=== PATIENT | male | born 1975 | race Caucasian/White ===

== ENCOUNTER 2018-09-07 19:29 | Inpatient (IN) | payer SELFPAY ==
[~2018-09-07] VITALS: Ht 188 cm; Wt 111.1 kg
[2018-09-07] MEDS ORDERED: IV NORMAL SALINE 1000ML BAG 1,000 ML IV ONE (20:00)
[2018-09-07] MEDS ORDERED: ACETAMINOPHEN 325 MG TABLET. PO PRN (20:00)
[2018-09-07] MEDS ORDERED: ONDANSETRON PF 4 MG/2 ML VIAL. IV PRN (20:00)
--- NOTE | 2018-09-07 20:02 | PHYS DOC ---
Past Medical History Past Medical History: Hypertension Additional Past Surgical Histo: Jaw surgery Smoking: Cigarettes Alcohol Use: None Drug Use: Benzodiazepine, Marijuana, Methamphetamine Adult General Chief Complaint Chief Complaint: HAND PROBLEM HPI HPI 43-year-old male presents with swelling and redness to right hand 3 days. Patient is right-handed. Patient reports he injected methamphetamines into the dorsal aspect of his upper wrist on Friday. Patient see was using a clean insulin needle. Reports he knows he missed the vein as he did not get his normal high. Patient reports the next day noted some significant swelling and redness which worsened over the last few days. Patient reports subjective fever and chills. Patient reports he found some left over Keflex antibiotics which he started yesterday. Patient reports today some slight improvement. Patient did have a ring on his right ring finger which was causing more pain and discomfort. Patient reports he has received a tetanus booster within the last 5 years. Review of Systems Review of Systems Constitutional: Reports subjective fever and chills Eyes: Denies redness or eye pain HENT: Denies nasal congestion or sore throat Respiratory: Denies cough or shortness of breath Cardiovascular: Denies chest pain or palpitations GI: Denies abdominal pain, nausea, or vomiting : Denies dysuria or hematuria Musculoskeletal: Denies back pain; reports right hand pain and swelling Integument: Denies laceration; reports right hand erythema and swelling Neurologic: Denies headache, focal weakness or sensory changes Complete systems were reviewed and found to be within normal limits, except as documented in this note. Current Medications Current Medications Current Medications Medications (Trade) Dose Ordered Sig/Elva Start Time Stop Time Status Last Admin Dose Admin Acetaminophen (Tylenol) 650 mg PRN Q4HRS PRN 09/07/18 20:00 09/08/18 19:59 09/07/18 20:17 650 MG Clindamycin Phosphate 50 ml @ 100 mls/hr 1X ONCE 09/07/18 20:30 09/07/18 20:59 DC 09/07/18 20:12 100 MLS/HR Ondansetron HCl (Zofran) 4 mg PRN Q8HRS PRN 09/07/18 20:00 09/08/18 19:59 Sodium Chloride 1,000 ml @ 1,000 mls/hr 1X ONCE 09/07/18 20:00 09/07/18 20:59 DC 09/07/18 20:00 1,000 MLS/HR Allergies Allergies Allergies Coded Allergies Type Severity Reaction Last Updated Verified No Known Drug Allergies 09/07/18 No Physical Exam Physical Exam Constitutional: Well developed, well nourished, no acute distress, non-toxic appearance HENT: Normocephalic, atraumatic, oropharynx moist Eyes: Conjunctiva normal, no discharge Neck: Normal range of motion, no tenderness, supple Cardiovascular: Heart rate normal, regular rhythm Lungs & Thorax: Bilateral breath sounds clear to auscultation, no wheezing Skin: Warm, dry, dorsal right hand with swelling and erythema consistent for cellulitis, puncture wound noted to dorsal right wrist Back: No tenderness, no CVA tenderness Extremities: Right hand swelling and erythema to dorsum, ROM limited due to swelling, mild discomfort with flexion of finger, CR < 2 sec, Right radial pulse +2 Neurologic: Alert and oriented X 3, no focal deficits noted Psychologic: Affect normal, judgement normal, mood normal Current Patient Data Vital Signs Vital Signs Date Time Temp Pulse Resp B/P (MAP) Pulse Ox O2 Delivery O2 Flow Rate FiO2 09/07/18 19:49 97.4 104 19 156/92 (113) 99 Room Air 97.4 Lab Values Laboratory Tests Test 09/07/18 19:42 White Blood Count 12.9 x10^3/uL (4.0-11.0) H Red Blood Count 4.64 x10^6/uL (4.30-5.70) Hemoglobin 13.4 g/dL (13.0-17.5) Hematocrit 40.5 % (39.0-53.0) Mean Corpuscular Volume 87 fL (79-100) Mean Corpuscular Hemoglobin 29 pg (25-35) Mean Corpuscular Hemoglobin Concent 33 g/dL (31-37) Red Cell Distribution Width 13.5 % (11.5-14.5) Platelet Count 186 x10^3/uL (140-400) Neutrophils (%) (Auto) 79 % (31-73) H Lymphocytes (%) (Auto) 11 % (24-48) L Monocytes (%) (Auto) 8 % (0-9) Eosinophils (%) (Auto) 2 % (0-3) Basophils (%) (Auto) 0 % (0-3) Neutrophils # (Auto) 10.1 x10^3uL (1.8-7.7) H Lymphocytes # (Auto) 1.5 x10^3/uL (1.0-4.8) Monocytes # (Auto) 1.0 x10^3/uL (0.0-1.1) Eosinophils # (Auto) 0.2 x10^3/uL (0.0-0.7) Basophils # (Auto) 0.0 x10^3/uL (0.0-0.2) Prothrombin Time 12.9 SEC (11.7-14.0) Prothrombin Time INR 1.0 (0.8-1.1) PTT 32 SEC (24-38) Sodium Level 140 mmol/L (136-145) Potassium Level 4.5 mmol/L (3.5-5.1) Chloride Level 105 mmol/L (98-107) Carbon Dioxide Level 30 mmol/L (21-32) Anion Gap 5 (6-14) L Blood Urea Nitrogen 13 mg/dL (8-26) Creatinine 1.0 mg/dL (0.7-1.3) Estimated GFR (Cockcroft-Gault) 81.9 BUN/Creatinine Ratio 13 (6-20) Glucose Level 114 mg/dL (70-99) H Lactic Acid Level 1.1 mmol/L (0.4-2.0) Calcium Level 9.1 mg/dL (8.5-10.1) Magnesium Level 2.1 mg/dL (1.8-2.4) Total Bilirubin 0.4 mg/dL (0.2-1.0) Aspartate Amino Transferase (AST) 29 U/L (15-37) Alanine Aminotransferase (ALT) 31 U/L (16-63) Alkaline Phosphatase 94 U/L (46-116) C-Reactive Protein, Quantitative 81.9 mg/L (0-3.3) H Total Protein 6.5 g/dL (6.4-8.2) Albumin 3.1 g/dL (3.4-5.0) L Albumin/Globulin Ratio 0.9 (1.0-1.7) L Laboratory Tests 09/07/18 19:42 Laboratory Tests 09/07/18 19:42 EKG EKG [] Radiology/Procedures Radiology/Procedures XR right hand (3 view): (preliminary interpretation by ED physician): NO acute fracture/dislocation, soft tissue swelling to dorsal aspect, no retained foreign body. Course & Med Decision Making Course & Med Decision Making Pertinent Labs and Imaging studies reviewed. (See chart for details) Patient presents with history of present illness and physical exam consistent for cellulitis status post injection of methamphetamines into his right hand. Empiric antibiotics initiated. Labs obtained and posted to chart. WBC slightly elevated. CRP elevated. Lactic acid within normal limits. Blood cultures pen ding. SIRS criteria met with tachycardia and elevated WBC. Given source of infection to right hand, sepsis criteria met. Severe sepsis and septic shock not demonstrated. X-ray of right hand without signs of retained foreign body. Patient requiring admission for further evaluation and treatment. Discussed with Dr. Diaz (hospitalist) who is in agreement with admission. Discussed findings and plan with patient, who acknowledges understanding and agreement. Dragon Disclaimer Dragon Disclaimer This electronic medical record was generated, in whole or in part, using a voice recognition dictation system. Departure Departure Impression: Primary Impression: Sepsis Additional Impressions: Cellulitis of right hand IV drug abuse Disposition: ADMITTED INPATIENT Admitting Physician: Other (Riffel) Condition: STABLE Referrals: UNKNOWN PCP NAME (PCP) Problem Qualifiers Primary Impression: Sepsis Sepsis type: sepsis due to unspecified organism Qualified Codes: A41.9 - Sepsis, unspecified organism CARLOS HERNÁNDEZ DO September 07, 2018 20:02
[2018-09-07 20:09] LABS: BASO % 0 % (0-3); EOS # 0.2 x10^3/uL (0.0-0.7); EOS % 2 % (0-3); HEMATOCRIT 40.5 % (39.0-53.0); HEMOGLOBIN 13.4 g/dL (13.0-17.5); LYMPH # 1.5 x10^3/uL (1.0-4.8); LYMPH % 11 % (24-48); MEAN CORPUSCULAR HEMOGLOBIN 29 pg (25-35); MEAN CORPUSCULAR HGB CONC 33 g/dL (31-37); MEAN CORPUSCULAR VOLUME 87 fL (79-100); MONO % 8 % (0-9); NEUT # 10.1 x10^3uL (1.8-7.7); NEUT % 79 % (31-73); PLATELET COUNT 186 x10^3/uL (140-400); RED BLOOD COUNT 4.64 x10^6/uL (4.30-5.70); RED CELL DISTRIBUTION WIDTH 13.5 % (11.5-14.5); WHITE BLOOD COUNT 12.9 x10^3/uL (4.0-11.0)
[2018-09-07 20:19] LABS: PROTHROMBIN TIME PATIENT 12.9 SEC (11.7-14.0)
[2018-09-07 20:28] LABS: CALCIUM 9.1 mg/dL (8.5-10.1); GFR 81.9; POTASSIUM 4.5 mmol/L (3.5-5.1)
[2018-09-07] MEDS ORDERED: CLINDAMYCIN 600MG PREMIX 50 ML IV ONE (20:30)
[2018-09-07 20:34] LABS: ALBUMIN 3.1 g/dL (3.4-5.0); ALBUMIN/GLOBULIN RATIO 0.9 (1.0-1.7); C-REACTIVE PROTEIN 81.9 mg/L (0-3.3); MAGNESIUM 2.1 mg/dL (1.8-2.4); TOTAL BILIRUBIN 0.4 mg/dL (0.2-1.0); TOTAL PROTEIN 6.5 g/dL (6.4-8.2)
--- NOTE | 2018-09-07 21:15 | RAD ---
Three-view right hand radiographs 09/07/2018 CLINICAL HISTORY: Right hand swelling. IV drug use. Concern for foreign body. PA, lateral and oblique digital radiographs of the right hand were obtained. Soft tissue swelling seen involving the dorsal soft tissues of the right hand. No fracture or dislocation is seen. No radiopaque foreign body is noted. IMPRESSION: No radiopaque foreign body is seen. Electronically signed by: Alirio Velez MD (09/07/2018 9:12 PM) [facility]
[2018-09-07] MEDS ORDERED: CLON0.5T PO (22:43)
[2018-09-07 22:47] VITALS: BP 143/92
[2018-09-07] MEDS: clonazePAM 0.5 MG TABLET PO SCH (22:57)
[2018-09-07] MEDS: NICOTINE POLACRILEX 2MG GUM PACKAGE of 12. BC PRN (22:57)
[2018-09-08 03:00] VITALS: BP 138/90
[2018-09-08] MEDS: VANCOMYCIN PER PHARMACY MC PRN (06:31)
--- NOTE | 2018-09-08 06:32 | NUR ---
Pharmacy Vancomycin Dosing Note S:Consulted to monitor and dose vancomycin started 09/08/18. O:JUDSON PEREZ is a 43 year old M with Cellulitis Sepsis . Height: 6 feet, 2 inches Weight: 102.374570 kg [place] Body Weight: 82.20 Adjusted Body Weight: 90.12 Dosing Weight: Actual Other Antibiotics: LABS: Last BUN: 13 Last Creatinine: 1 Creatinine Clearance: 122 mL/min Last WBC: 12.9 Last Procalcitonin: Tmax (past 24 hours): Microbiology: I/O: Drug Levels: Last level: on at Last dose given 09/08/18 at 0700 Vancomycin Dosing: Loading Dose: 2000 mg x1 Dosing Weight: Actual Target Trough: 15-20 A: Based on: WT AND CRCL P: 1. Begin Vancomycin 1500 mg IV q8h 2. Follow up Trough level on 09/09/18 at 0630 3. Pharmacy will continue to monitor, follow and adjust therapy as needed. MATTHEW MCKAY RPH, 09/08/18 0632 Signed: 09/08/18 at 0633 by MATTHEW MCKAY RPH PHA
[2018-09-08 07:00] VITALS: BP 130/73
[2018-09-08] MEDS ORDERED: VANCOMYCIN 2 GM in IV NORMAL SALINE 500ML BAG 500 ML IV ONE (07:00)
--- NOTE | 2018-09-08 08:11 | PDOC1 ---
History and Physical Date of Admission Date of Admission DATE: 09/08/18 TIME: 08:07 Source Source: Chart review, Patient History of Present Illness History of Present Illness 43-year-old male presents with swelling and redness to right hand 3 days. Patient is right-handed. Patient reports he injected methamphetamines into the dorsal aspect of his upper wrist on Friday. Patient see was using a clean insulin needle. Reports he knows he missed the vein as he did not get his normal high. Patient reports the next day noted some significant swelling and redness which worsened over the last few days. Patient reports subjective fever and chills. Patient reports he found some left over Keflex antibiotics which he started yesterday. Patient reports today some slight improvement. Patient did have a ring on his right ring finger which was causing more pain and discomfort. Patient reports he has received a tetanus booster within the last 5 years. Past Surgical History Past Surgical History: No pertinent history Social History Smoke: <1 pack per day ALCOHOL: rare Drugs: Crystal meth Current Problem List Problem List Problems Medical Problems: (1) Cellulitis of right hand Status: Acute (2) IV drug abuse Status: Acute (3) Sepsis Status: Acute Current Medications Current Medications Current Medications Clindamycin Phosphate 50 ml @ 100 mls/hr 1X ONCE IV Last administered on 09/07/18at 20:12; Start 09/07/18 at 20:30; Stop 09/07/18 at 20:59; Status DC Sodium Chloride 1,000 ml @ 1,000 mls/hr 1X ONCE IV Last administered on 09/07/18at 20:00; Start 09/07/18 at 20:00; Stop 09/07/18 at 20:59; Status DC Ondansetron HCl (Zofran) 4 mg PRN Q8HRS PRN IV NAUSEA/VOMITING; Start 09/07/18 at 20:00; Stop 09/09/18 at 19:58 Acetaminophen (Tylenol) 650 mg PRN Q4HRS PRN PO FEVER Last administered on 09/07/18at 20:17; Start 09/07/18 at 20:00; Stop 09/09/18 at 19:58 Nicotine Polacrilex (Nicorette Gum) 1 each PRN Q1HR PRN BC SMOKING CESSATION Last administered on 09/07/18at 22:57; Start 09/07/18 at 23:00 Clonazepam (KlonoPIN) 0.5 mg TID PO Last administered on 09/07/18at 22:57; Sta rt 09/07/18 at 23:00 Vancomycin HCl 2 gm/Sodium Chloride 500 ml @ 250 mls/hr 1X ONCE IV Last administered on 09/08/18at 06:44; Start 09/08/18 at 07:00; Stop 09/08/18 at 08:59 Vancomycin HCl (Vanco Per Pharmacy) 1 each PRN DAILY PRN MC SEE COMMENTS Last a dministered on 09/08/18at 06:31; Start 09/08/18 at 06:30 Vancomycin HCl 1.5 gm/Sodium Chloride 500 ml @ 250 mls/hr Q8H IV ; Start 09/08/18 at 15:00 Vancomycin HCl (Vancomycin Trough Level) 1 each 1X ONCE MC ; Start 09/09/18 at 06:30; Stop 09/09/18 at 06:31 Active Scripts Active Reported Klonopin (Clonazepam) 0.5 Mg Tablet 0.5 Mg PO TID Allergies Allergies: Coded Allergies: No Known Drug Allergies (Unverified , 09/07/18) ROS General: YES: Fatigue; No: Chills, Night Sweats, Malaise, Appetite, Other PSYCHOLOGICAL ROS: No: Anxiety, Behavioral Disorder, Concentration difficultie, Decreased libido, Depression, Disorientation, Hallucinations, Hostility, Irritablity, Memory difficulties, Mood Swings, Obsessive thoughts, Physical abuse, Sexual abuse, Sleep disturbances, Suicidal ideation, Other Eyes: No Blurry vision, No Decreased vision, No Double vision, No Dry eyes, No Excessive tearing, No Eye Pain, No Itchy Eyes, No Loss of vision, No Photophobia, No Scotomata, No Uses contacts, No Uses glasses, No Other Physical Exam General: Alert, Oriented X3, Cooperative, No acute distress HEENT: Atraumatic, PERRLA Lungs: Clear to auscultation, Normal air movement Heart: S1S2, RRR, no murmurs Abdomen: Normal bowel sounds, Soft Rectal Exam: not examined Extremities: No cyanosis, No edema, Normal pulses Skin: No rashes, No breakdown, No significant lesion Neuro: Normal speech, Sensation intact Psych/Mental Status: Mental status NL, Mood NL Vitals Vitals Vital Signs Date Time Temp Pulse Resp B/P (MAP) Pulse Ox O2 Delivery O2 Flow Rate FiO2 09/08/18 07:00 98.2 87 18 130/73 (92) 97 Room Air 98.2 Labs Labs Laboratory Tests Test 09/07/18 19:42 White Blood Count 12.9 x10^3/uL (4.0-11.0) Red Blood Count 4.64 x10^6/uL (4.30-5.70) Hemoglobin 13.4 g/dL (13.0-17.5) Hematocrit 40.5 % (39.0-53.0) Mean Corpuscular Volume 87 fL (79-100) Mean Corpuscular Hemoglobin 29 pg (25-35) Mean Corpuscular Hemoglobin Concent 33 g/dL (31-37) Red Cell Distribution Width 13.5 % (11.5-14.5) Platelet Count 186 x10^3/uL (140-400) Neutrophils (%) (Auto) 79 % (31-73) Lymphocytes (%) (Auto) 11 % (24-48) Monocytes (%) (Auto) 8 % (0-9) Eosinophils (%) (Auto) 2 % (0-3) Basophils (%) (Auto) 0 % (0-3) Neutrophils # (Auto) 10.1 x10^3uL (1.8-7.7) Lymphocytes # (Auto) 1.5 x10^3/uL (1.0-4.8) Monocytes # (Auto) 1.0 x10^3/uL (0.0-1.1) Eosinophils # (Auto) 0.2 x10^3/uL (0.0-0.7) Basophils # (Auto) 0.0 x10^3/uL (0.0-0.2) Erythrocyte Sedimentation Rate 33 (0-15) Prothrombin Time 12.9 SEC (11.7-14.0) Prothromb Time International Ratio 1.0 (0.8-1.1) Activated Partial Thromboplast Time 32 SEC (24-38) Sodium Level 140 mmol/L (136-145) Potassium Level 4.5 mmol/L (3.5-5.1) Chloride Level 105 mmol/L (98-107) Carbon Dioxide Level 30 mmol/L (21-32) Anion Gap 5 (6-14) Blood Urea Nitrogen 13 mg/dL (8-26) Creatinine 1.0 mg/dL (0.7-1.3) Estimated GFR (Cockcroft-Gault) 81.9 BUN/Creatinine Ratio 13 (6-20) Glucose Level 114 mg/dL (70-99) Lactic Acid Level 1.1 mmol/L (0.4-2.0) Calcium Level 9.1 mg/dL (8.5-10.1) Magnesium Level 2.1 mg/dL (1.8-2.4) Total Bilirubin 0.4 mg/dL (0.2-1.0) Aspartate Amino Transf (AST/SGOT) 29 U/L (15-37) Alanine Aminotransferase (ALT/SGPT) 31 U/L (16-63) Alkaline Phosphatase 94 U/L (46-116) C-Reactive Protein, Quantitative 81.9 mg/L (0-3.3) Total Protein 6.5 g/dL (6.4-8.2) Albumin 3.1 g/dL (3.4-5.0) Albumin/Globulin Ratio 0.9 (1.0-1.7) Laboratory Tests Test 09/07/18 19:42 White Blood Count 12.9 x10^3/uL (4.0-11.0) Red Blood Count 4.64 x10^6/uL (4.30-5.70) Hemoglobin 13.4 g/dL (13.0-17.5) Hematocrit 40.5 % (39.0-53.0) Mean Corpuscular Volume 87 fL (79-100) Mean Corpuscular Hemoglobin 29 pg (25-35) Mean Corpuscular Hemoglobin Concent 33 g/dL (31-37) Red Cell Distribution Width 13.5 % (11.5-14.5) Platelet Count 186 x10^3/uL (140-400) Neutrophils (%) (Auto) 79 % (31-73) Lymphocytes (%) (Auto) 11 % (24-48) Monocytes (%) (Auto) 8 % (0-9) Eosinophils (%) (Auto) 2 % (0-3) Basophils (%) (Auto) 0 % (0-3) Neutrophils # (Auto) 10.1 x10^3uL (1.8-7.7) Lymphocytes # (Auto) 1.5 x10^3/uL (1.0-4.8) Monocytes # (Auto) 1.0 x10^3/uL (0.0-1.1) Eosinophils # (Auto) 0.2 x10^3/uL (0.0-0.7) Basophils # (Auto) 0.0 x10^3/uL (0.0-0.2) Erythrocyte Sedimentation Rate 33 (0-15) Prothrombin Time 12.9 SEC (11.7-14.0) Prothromb Time International Ratio 1.0 (0.8-1.1) Activated Partial Thromboplast Time 32 SEC (24-38) Sodium Level 140 mmol/L (136-145) Potassium Level 4.5 mmol/L (3.5-5.1) Chloride Level 105 mmol/L (98-107) Carbon Dioxide Level 30 mmol/L (21-32) Anion Gap 5 (6-14) Blood Urea Nitrogen 13 mg/dL (8-26) Creatinine 1.0 mg/dL (0.7-1.3) Estimated GFR (Cockcroft-Gault) 81.9 BUN/Creatinine Ratio 13 (6-20) Glucose Level 114 mg/dL (70-99) Lactic Acid Level 1.1 mmol/L (0.4-2.0) Calcium Level 9.1 mg/dL (8.5-10.1) Magnesium Level 2.1 mg/dL (1.8-2.4) Total Bilirubin 0.4 mg/dL (0.2-1.0) Aspartate Amino Transf (AST/SGOT) 29 U/L (15-37) Alanine Aminotransferase (ALT/SGPT) 31 U/L (16-63) Alkaline Phosphatase 94 U/L (46-116) C-Reactive Protein, Quantitative 81.9 mg/L (0-3.3) Total Protein 6.5 g/dL (6.4-8.2) Albumin 3.1 g/dL (3.4-5.0) Albumin/Globulin Ratio 0.9 (1.0-1.7) VTE Prophylaxis Ordered VTE Prophylaxis Devices: No VTE Pharmacological Prophylaxi: Yes Assessment/Plan Assessment/Plan cellulitis w. edema skin infection from IV drug abuse meth use tobacco use disorder ANGELITA HAMLIN MD September 08, 2018 08:11
[2018-09-08] MEDS: clonazePAM 0.5 MG TABLET PO SCH ×3 (09:21→21:00)
[2018-09-08 11:00] VITALS: BP 138/82
--- NOTE | 2018-09-08 11:31 | CARD ---
MR#: [id number] Date of Study: 09/08/2018 Ordering Physician: ANGELITA HAMLIN, Referring Physician: RACHEL MEDRANO, Tech: Zeenat Guerrero APPROVED REPORT EXAM: Two-dimensional and M-mode echocardiogram with Doppler and color Doppler. Other Information Quality : GoodHR: 96bpm INDICATION IV Drug User RISK FACTORS Smoking 2D DIMENSIONS RVDd3.2 (2.9-3.5cm)Left Atrium(2D)4.0 (1.6-4.0cm) IVSd1.2 (0.7-1.1cm)Aortic Root(2D)3.5 (2.0-3.7cm) LVDd5.7 (3.9-5.9cm)LVOT Diameter2.4 (1.8-2.4cm) PWd1.1 (0.7-1.1cm)LVDs4.3 (2.5-4.0cm) FS (%) 23.9 %SV75.3 ml LVEF(%)47.0 (>50%) Aortic Valve AoV Peak Corey.148.7cm/sAoV VTI26.2cm AO Peak GR.8.8mmHgLVOT Peak Corey.93.9cm/s LVOT VTI 18.66cmAO Mean GR.6mmHg GLEN (VMAX)2.04we3NOM (VTI)3.32cm2 Mitral Valve MV E Dhmkkzkp907.7cm/sMV DECEL KAPN140mx MV A Lwocabcd50.3cm/sMV DOC56ih E/A Ratio1.7MVA (PHT)4.32cm2 Pulmonary Valve PV Peak Qsbgbbln024.6cm/sPV Peak Grad.5mmHg Tricuspid Valve TR P. Ofgotvsb132jd/sRAP ONSOEEXU59mrLw TR Peak Gr.44unXaDSWY70qnBm Pulmonary Vein S1 Qetfhaxy94.0cm/sD2 Vdcsraqp77.6cm/s PVa atnttaya101ckyp LEFT VENTRICLE The left ventricle is normal size. There is mild concentric left ventricular hypertrophy. The left ve ntricular systolic function is normal. The Ejection Fraction is 55-60%. There is normal LV segmental wall motion. The left ventricular diastolic function and filling is normal for age. RIGHT VENTRICLE The right ventricle is normal size. There is normal right ventricular wall thickness. The right ventr icular systolic function is normal. ATRIA The left atrium size is normal. The right atrium is borderline dilated. The interatrial septum is int act with no evidence for an atrial septal defect or patent foramen ovale as noted on 2-D or Doppler i maging. AORTIC VALVE The aortic valve is normal in structure and function. Doppler and Color Flow revealed no significant aortic regurgitation. There is no significant aortic valvular stenosis. MITRAL VALVE The mitral valve is normal in structure and function. There is no evidence of mitral valve prolapse. There is no mitral valve stenosis. Doppler and Color-flow revealed trace mitral regurgitation. TRICUSPID VALVE The tricuspid valve is normal in structure and function. Doppler and Color Flow revealed trace tricus pid regurgitation with an estimated PAP of 50 mmHg. There is moderate pulmonary hypertension. There i s no tricuspid valve stenosis. PULMONIC VALVE The pulmonary valve is normal in structure and function. Doppler and Color Flow revealed trace pulmon ic valvular regurgitation. GREAT VESSELS The aortic root is normal in size. The IVC is dilated and collapses >50% with inspiration. PERICARDIAL EFFUSION There is no evidence of significant pericardial effusion. Critical Notification Critical Value: No <Conclusion> The left ventricular systolic function is normal. The Ejection Fraction is 55-60%. There is normal LV segmental wall motion. Trace mitral regurgitation. Trace tricuspid regurgitation with an estimated PAP of 50 mmHg. There is no evidence of significant pericardial effusion. Signed by : Jeremie Joshi, Electronically Approved : 09/08/2018 11:31:36
--- NOTE | 2018-09-08 13:19 | NUR ---
SW following pt for anticipated dc needs. Chart reviewed. Pt lives a home and is self pay. No discharge recommendations noted at this time.
[2018-09-08] MEDS: NICOTINE POLACRILEX 2MG GUM PACKAGE of 12. BC PRN (14:02)
[2018-09-08 14:58] VITALS: BP 145/80
[2018-09-08] MEDS: VANCOMYCIN 1.5 GM in IV NORMAL SALINE 500ML BAG 500 ML IV SCH ×2 (16:16→23:15)
[2018-09-08] MEDS: LORazepam 1 MG TABLET PO PRN (16:25)
[2018-09-08 19:00] VITALS: BP 146/99
[2018-09-08] MEDS: LACTOBACILLUS RHAMNOSUS GG 1 CAPSULE. PO SCH (21:00)
[2018-09-08 22:55] VITALS: BP 124/76
[2018-09-09 03:00] VITALS: BP 123/78
[2018-09-09 07:00] VITALS: BP 146/83
[2018-09-09 07:19] LABS: BASO % 1 % (0-3); EOS # 0.3 x10^3/uL (0.0-0.7); EOS % 5 % (0-3); HEMATOCRIT 37.9 % (39.0-53.0); HEMOGLOBIN 12.6 g/dL (13.0-17.5); LYMPH % 17 % (24-48); MEAN CORPUSCULAR HEMOGLOBIN 29 pg (25-35); MEAN CORPUSCULAR HGB CONC 33 g/dL (31-37); MEAN CORPUSCULAR VOLUME 87 fL (79-100); MONO # 0.6 x10^3/uL (0.0-1.1); MONO % 10 % (0-9); NEUT # 4.2 x10^3uL (1.8-7.7); NEUT % 68 % (31-73); PLATELET COUNT 185 x10^3/uL (140-400); RED BLOOD COUNT 4.36 x10^6/uL (4.30-5.70); RED CELL DISTRIBUTION WIDTH 12.9 % (11.5-14.5); WHITE BLOOD COUNT 6.2 x10^3/uL (4.0-11.0)
[2018-09-09 07:30] LABS: ALBUMIN 2.6 g/dL (3.4-5.0); ALBUMIN/GLOBULIN RATIO 0.8 (1.0-1.7); CALCIUM 8.2 mg/dL (8.5-10.1); CREATININE 0.9 mg/dL (0.7-1.3); GFR 92.5; POTASSIUM 3.9 mmol/L (3.5-5.1); TOTAL BILIRUBIN 0.2 mg/dL (0.2-1.0); TOTAL PROTEIN 5.9 g/dL (6.4-8.2)
[2018-09-09 07:32] LABS: VANC TR 15.9 mcg/mL (10.0-20.0)
[2018-09-09] MEDS: VANCOMYCIN 1.5 GM in IV NORMAL SALINE 500ML BAG 500 ML IV SCH ×3 (07:46→23:14)
[2018-09-09] MEDS: NICOTINE POLACRILEX 2MG GUM PACKAGE of 12. BC PRN (07:47)
[2018-09-09] MEDS: clonazePAM 0.5 MG TABLET PO SCH ×3 (07:48→20:25)
[2018-09-09] MEDS: LACTOBACILLUS RHAMNOSUS GG 1 CAPSULE. PO SCH ×2 (07:48→20:25)
[2018-09-09] MEDS: VANCOMYCIN PER PHARMACY MC PRN ×2 (08:00→11:21)
--- NOTE | 2018-09-09 08:02 | NUR ---
RXPharmacy Vancomycin Dosing Note S:Consulted to monitor and dose vancomycin started 09/08/18. O:JUDSON PEREZ is a 43 year old M with Cellulitis Sepsis . Height: 6 feet, 2 inches Weight: 111.709915 kg [place] Body Weight: 82.20 Adjusted Body Weight: 90.12 Dosing Weight: Actual Other Antibiotics: LABS: Last BUN: 10 Last Creatinine: 0.9 Creatinine Clearance: 122 mL/min Last WBC: 12.9 Last Procalcitonin: Tmax (past 24 hours): 99.0 Microbiology: BC NGTD I/O: 1490/- Drug Levels: Last Trough level: 15.9 on 09/09/18 at 0640 Last dose given 09/08/18 at 0700 Vancomycin Dosing: Loading Dose: 2000 mg x1 Dosing Weight: Actual Target Trough: 15-20 A: Based on: TROUGH=15.9 P: 1. Continue Vancomycin 1500 mg IV q8h 2. Follow up Trough level on 09/09/18 at 0630 3. Pharmacy will continue to monitor, follow and adjust therapy as needed. BHUMI ALEMAN, [facility], 09/09/18 0802
[2018-09-09] MEDS: LORazepam 1 MG TABLET PO PRN ×2 (09:52→23:22)
[2018-09-09 11:00] VITALS: BP 133/79
--- NOTE | 2018-09-09 13:52 | PDOC ---
PROGRESS NOTES Chief Complaint Chief Complaint cellulitis w. edema skin infection from IV drug abuse meth use tobacco use disorder Plan: Continue with current medications and IV therapy. Will transition to oral antibiotic in the a.m. if continues to have proper progression Hopefully dismissed later in the day tomorrow History of Present Illness History of Present Illness FEN better compared to admission. Edema has greatly improved erythema has improved as well as per the patient. No concerns voiced during my encounter no fever or chills reported no acute events reported overnight but nursing staff Vitals Vitals Vital Signs Date Time Temp Pulse Resp B/P (MAP) Pulse Ox O2 Delivery O2 Flow Rate FiO2 09/09/18 11:00 97.6 88 18 133/79 (97) 96 Room Air 97.6 Physical Exam General: Alert, Oriented X3, Cooperative, No acute distress Abdomen: Normal bowel sounds, Soft Extremities: No cyanosis, No edema, Normal pulses Skin: No rashes, No breakdown, No significant lesion Labs LABS Laboratory Tests Test 09/09/18 06:40 White Blood Count 6.2 x10^3/uL (4.0-11.0) Red Blood Count 4.36 x10^6/uL (4.30-5.70) Hemoglobin 12.6 g/dL (13.0-17.5) Hematocrit 37.9 % (39.0-53.0) Mean Corpuscular Volume 87 fL (79-100) Mean Corpuscular Hemoglobin 29 pg (25-35) Mean Corpuscular Hemoglobin Concent 33 g/dL (31-37) Red Cell Distribution Width 12.9 % (11.5-14.5) Platelet Count 185 x10^3/uL (140-400) Neutrophils (%) (Auto) 68 % (31-73) Lymphocytes (%) (Auto) 17 % (24-48) Monocytes (%) (Auto) 10 % (0-9) Eosinophils (%) (Auto) 5 % (0-3) Basophils (%) (Auto) 1 % (0-3) Neutrophils # (Auto) 4.2 x10^3uL (1.8-7.7) Lymphocytes # (Auto) 1.0 x10^3/uL (1.0-4.8) Monocytes # (Auto) 0.6 x10^3/uL (0.0-1.1) Eosinophils # (Auto) 0.3 x10^3/uL (0.0-0.7) Basophils # (Auto) 0.0 x10^3/uL (0.0-0.2) Sodium Level 142 mmol/L (136-145) Potassium Level 3.9 mmol/L (3.5-5.1) Chloride Level 106 mmol/L (98-107) Carbon Dioxide Level 28 mmol/L (21-32) Anion Gap 8 (6-14) Blood Urea Nitrogen 10 mg/dL (8-26) Creatinine 0.9 mg/dL (0.7-1.3) Estimated GFR (Cockcroft-Gault) 92.5 BUN/Creatinine Ratio 11 (6-20) Glucose Level 107 mg/dL (70-99) Calcium Level 8.2 mg/dL (8.5-10.1) Total Bilirubin 0.2 mg/dL (0.2-1.0) Aspartate Amino Transf (AST/SGOT) 26 U/L (15-37) Alanine Aminotransferase (ALT/SGPT) 48 U/L (16-63) Alkaline Phosphatase 88 U/L (46-116) Total Protein 5.9 g/dL (6.4-8.2) Albumin 2.6 g/dL (3.4-5.0) Albumin/Globulin Ratio 0.8 (1.0-1.7) Vancomycin Level Trough 15.9 mcg/mL (10.0-20.0) Vancomycin Last Dose Date 09/08/18 Vancomycin Last Dose Time 2300 Hepatitis A IgM Antibody Nonreactive (Nonreactive) Hepatitis B Surface Antigen Nonreactive (Nonreactive) Hepatitis B Core IgM Antibody Nonreactive (Nonreactive) Hepatitis C IgG Antibody Nonreactive (Nonreactive) HIV (1&2) Antibody Screen Nonreactive (Nonreactive) Review of Systems Review of Systems Pertinent as per history of present illness otherwise 14 point review of system is negative Assessment and Plan Assessmemt and Plan Problems Medical Problems: (1) Cellulitis of right hand Status: Acute (2) IV drug abuse Status: Acute (3) Sepsis Status: Acute Comment Review of Relevant I have reviewed the following items ofelia (where applicable) has been applied. Labs Laboratory Tests Test 09/07/18 19:42 09/09/18 06:40 White Blood Count 12.9 x10^3/uL (4.0-11.0) 6.2 x10^3/uL (4.0-11.0) Red Blood Count 4.64 x10^6/uL (4.30-5.70) 4.36 x10^6/uL (4.30-5.70) Hemoglobin 13.4 g/dL (13.0-17.5) 12.6 g/dL (13.0-17.5) Hematocrit 40.5 % (39.0-53.0) 37.9 % (39.0-53.0) Mean Corpuscular Volume 87 fL (79-100) 87 fL (79-100) Mean Corpuscular Hemoglobin 29 pg (25-35) 29 pg (25-35) Mean Corpuscular Hemoglobin Concent 33 g/dL (31-37) 33 g/dL (31-37) Red Cell Distribution Width 13.5 % (11.5-14.5) 12.9 % (11.5-14.5) Platelet Count 186 x10^3/uL (140-400) 185 x10^3/uL (140-400) Neutrophils (%) (Auto) 79 % (31-73) 68 % (31-73) Lymphocytes (%) (Auto) 11 % (24-48) 17 % (24-48) Monocytes (%) (Auto) 8 % (0-9) 10 % (0-9) Eosinophils (%) (Auto) 2 % (0-3) 5 % (0-3) Basophils (%) (Auto) 0 % (0-3) 1 % (0-3) Neutrophils # (Auto) 10.1 x10^3uL (1.8-7.7) 4.2 x10^3uL (1.8-7.7) Lymphocytes # (Auto) 1.5 x10^3/uL (1.0-4.8) 1.0 x10^3/uL (1.0-4.8) Monocytes # (Auto) 1.0 x10^3/uL (0.0-1.1) 0.6 x10^3/uL (0.0-1.1) Eosinophils # (Auto) 0.2 x10^3/uL (0.0-0.7) 0.3 x10^3/uL (0.0-0.7) Basophils # (Auto) 0.0 x10^3/uL (0.0-0.2) 0.0 x10^3/uL (0.0-0.2) Erythrocyte Sedimentation Rate 33 (0-15) Prothrombin Time 12.9 SEC (11.7-14.0) Prothromb Time International Ratio 1.0 (0.8-1.1) Activated Partial Thromboplast Time 32 SEC (24-38) Sodium Level 140 mmol/L (136-145) 142 mmol/L (136-145) Potassium Level 4.5 mmol/L (3.5-5.1) 3.9 mmol/L (3.5-5.1) Chloride Level 105 mmol/L (98-107) 106 mmol/L (98-107) Carbon Dioxide Level 30 mmol/L (21-32) 28 mmol/L (21-32) Anion Gap 5 (6-14) 8 (6-14) Blood Urea Nitrogen 13 mg/dL (8-26) 10 mg/dL (8-26) Creatinine 1.0 mg/dL (0.7-1.3) 0.9 mg/dL (0.7-1.3) Estimated GFR (Cockcroft-Gault) 81.9 92.5 BUN/Creatinine Ratio 13 (6-20) 11 (6-20) Glucose Level 114 mg/dL (70-99) 107 mg/dL (70-99) Lactic Acid Level 1.1 mmol/L (0.4-2.0) Calcium Level 9.1 mg/dL (8.5-10.1) 8.2 mg/dL (8.5-10.1) Magnesium Level 2.1 mg/dL (1.8-2.4) Total Bilirubin 0.4 mg/dL (0.2-1.0) 0.2 mg/dL (0.2-1.0) Aspartate Amino Transf (AST/SGOT) 29 U/L (15-37) 26 U/L (15-37) Alanine Aminotransferase (ALT/SGPT) 31 U/L (16-63) 48 U/L (16-63) Alkaline Phosphatase 94 U/L (46-116) 88 U/L (46-116) C-Reactive Protein, Quantitative 81.9 mg/L (0-3.3) Total Protein 6.5 g/dL (6.4-8.2) 5.9 g/dL (6.4-8.2) Albumin 3.1 g/dL (3.4-5.0) 2.6 g/dL (3.4-5.0) Albumin/Globulin Ratio 0.9 (1.0-1.7) 0.8 (1.0-1.7) Vancomycin Level Trough 15.9 mcg/mL (10.0-20.0) Vancomycin Last Dose Date 09/08/18 Vancomycin Last Dose Time 2300 Hepatitis A IgM Antibody Nonreactive (Nonreactive) Hepatitis B Surface Antigen Nonreactive (Nonreactive) Hepatitis B Core IgM Antibody Nonreactive (Nonreactive) Hepatitis C IgG Antibody Nonreactive (Nonreactive) HIV (1&2) Antibody Screen Nonreactive (Nonreactive) Laboratory Tests Test 09/09/18 06:40 White Blood Count 6.2 x10^3/uL (4.0-11.0) Red Blood Count 4.36 x10^6/uL (4.30-5.70) Hemoglobin 12.6 g/dL (13.0-17.5) Hematocrit 37.9 % (39.0-53.0) Mean Corpuscular Volume 87 fL (79-100) Mean Corpuscular Hemoglobin 29 pg (25-35) Mean Corpuscular Hemoglobin Concent 33 g/dL (31-37) Red Cell Distribution Width 12.9 % (11.5-14.5) Platelet Count 185 x10^3/uL (140-400) Neutrophils (%) (Auto) 68 % (31-73) Lymphocytes (%) (Auto) 17 % (24-48) Monocytes (%) (Auto) 10 % (0-9) Eosinophils (%) (Auto) 5 % (0-3) Basophils (%) (Auto) 1 % (0-3) Neutrophils # (Auto) 4.2 x10^3uL (1.8-7.7) Lymphocytes # (Auto) 1.0 x10^3/uL (1.0-4.8) Monocytes # (Auto) 0.6 x10^3/uL (0.0-1.1) Eosinophils # (Auto) 0.3 x10^3/uL (0.0-0.7) Basophils # (Auto) 0.0 x10^3/uL (0.0-0.2) Sodium Level 142 mmol/L (136-145) Potassium Level 3.9 mmol/L (3.5-5.1) Chloride Level 106 mmol/L (98-107) Carbon Dioxide Level 28 mmol/L (21-32) Anion Gap 8 (6-14) Blood Urea Nitrogen 10 mg/dL (8-26) Creatinine 0.9 mg/dL (0.7-1.3) Estimated GFR (Cockcroft-Gault) 92.5 BUN/Creatinine Ratio 11 (6-20) Glucose Level 107 mg/dL (70-99) Calcium Level 8.2 mg/dL (8.5-10.1) Total Bilirubin 0.2 mg/dL (0.2-1.0) Aspartate Amino Transf (AST/SGOT) 26 U/L (15-37) Alanine Aminotransferase (ALT/SGPT) 48 U/L (16-63) Alkaline Phosphatase 88 U/L (46-116) Total Protein 5.9 g/dL (6.4-8.2) Albumin 2.6 g/dL (3.4-5.0) Albumin/Globulin Ratio 0.8 (1.0-1.7) Vancomycin Level Trough 15.9 mcg/mL (10.0-20.0) Vancomycin Last Dose Date 09/08/18 Vancomycin Last Dose Time 2300 Hepatitis A IgM Antibody Nonreactive (Nonreactive) Hepatitis B Surface Antigen Nonreactive (Nonreactive) Hepatitis B Core IgM Antibody Nonreactive (Nonreactive) Hepatitis C IgG Antibody Nonreactive (Nonreactive) HIV (1&2) Antibody Screen Nonreactive (Nonreactive) Microbiology 09/07/18 Blood Culture - Preliminary, Resulted NO GROWTH AFTER 1 DAY Medications Current Medications Clindamycin Phosphate 50 ml @ 100 mls/hr 1X ONCE IV Last administered on 09/07/18at 20:12; Start 09/07/18 at 20:30; Stop 09/07/18 at 20:59; Status DC Sodium Chloride 1,000 ml @ 1,000 mls/hr 1X ONCE IV Last administered on 09/07/18at 20:00; Start 09/07/18 at 20:00; Stop 09/07/18 at 20:59; Status DC Ondansetron HCl (Zofran) 4 mg PRN Q8HRS PRN IV NAUSEA/VOMITING; Start 09/07/18 at 20:00; Stop 09/09/18 at 19:58 Acetaminophen (Tylenol) 650 mg PRN Q4HRS PRN PO FEVER Last administered on 09/07/18 20:17; Start 09/07/18 at 20:00; Stop 09/09/18 at 19:58 Nicotine Polacrilex (Nicorette Gum) 1 each PRN Q1HR PRN BC SMOKING CESSATION Last administered on 09/09/18 07:47; Start 09/07/18 at 23:00 Clonazepam (KlonoPIN) 0.5 mg TID PO Last administered on 09/09/18 07:48; Start 09/07/18 at 23:00 Vancomycin HCl 2 gm/Sodium Chloride 500 ml @ 250 mls/hr 1X ONCE IV Last administered on 09/08/18 06:44; Start 09/08/18 at 07:00; Stop 09/08/18 at 08:59; Status DC Vancomycin HCl (Vanco Per Pharmacy) 1 each PRN DAILY PRN MC SEE COMMENTS Last administered on 09/09/18 11:21; Start 09/08/18 at 06:30 Vancomycin HCl 1.5 gm/Sodium Chloride 500 ml @ 250 mls/hr Q8H IV Last administered on 09/09/18 07:46; Start 09/08/18 at 15:00 Vancomycin HCl (Vancomycin Trough Level) 1 each 1X ONCE MC ; Start 09/09/18 at 06:30; Stop 09/09/18 at 06:31; Status DC Lorazepam (Ativan) 1 mg PRN Q6HRS PRN PO ANXIETY / AGITATION Last administered on 09/09/18 09:52; Start 09/08/18 at 12:15 Lactobacillus Rhamnosus (Culturelle) 1 cap BID PO Last administered on 09/09/18 07:48; Start 09/08/18 at 21:00 Active Scripts Active Reported Klonopin (Clonazepam) 0.5 Mg Tablet 0.5 Mg PO TID Vitals/I & O Vital Sign - Last 24 Hours 09/08/18 09/08/18 09/08/18 09/08/18 14:58 19:00 20:00 22:55 Temp 97.8 99.0 98.4 97.8 99.0 98.4 Pulse 92 95 97 Resp 18 18 18 B/P (MAP) 145/80 (101) 146/99 (115) 124/76 (92) Pulse Ox 98 98 96 O2 Delivery Room Air Room Air Room Air Room Air 09/09/18 09/09/18 09/09/18 03:00 07:00 11:00 Temp 98.4 98.0 97.6 98.4 98.0 97.6 Pulse 96 84 88 Resp 18 18 B/P (MAP) 123/78 (93) 146/83 (104) 133/79 (97) Pulse Ox 96 97 96 O2 Delivery Room Air Room Air Room Air Intake and Output 09/08/18 09/08/18 09/09/18 14:59 22:59 06:59 Intake Total 950 ml 300 ml 240 ml Balance 950 ml 300 ml 240 ml PADMINI HUNTLEY MD September 09, 2018 13:52
[2018-09-09 15:00] VITALS: BP 140/83
[2018-09-09 19:00] VITALS: BP 162/103
[2018-09-09 23:00] VITALS: BP 164/86
[2018-09-09 23:41] LABS: BILIRUBIN,URINE NEGATIVE (NEG); CLARITY,URINE CLOUDY; COLOR,URINE YELLOW; NITRITE,URINE NEGATIVE (NEG); PH,URINE 6.5; PROTEIN,URINE NEGATIVE (NEG-TRACE); UROBILINOGEN,URINE 0.2 mg/dL (0.2 mg/dL)
[2018-09-09 23:47] LABS: BARBITURATES NEG (NEG); BENZODIAZEPINES NEG (NEG); CANNABINOIDS NEG (NEG); COCAINE NEG (NEG); METHADONE NEG (NEG); OPIATES NEG (NEG); PHENCYCLIDINE NEG (NEG)
[2018-09-09 23:49] LABS: BACTERIA,URINE 0 /HPF (0-FEW); RBC,URINE 0 /HPF (0-2); SQUAMOUS EPITHELIAL CELL,UR OCC /LPF; WBC,URINE OCC /HPF (0-4)
[2018-09-09 23:50] LABS: AMPHETAMINE/METHAMPHETAMINE POS (NEG)
[2018-09-10 03:00] VITALS: BP 141/88
[2018-09-10 06:07] LABS: GFR 81.9
[2018-09-10] MEDS: VANCOMYCIN 1.5 GM in IV NORMAL SALINE 500ML BAG 500 ML IV SCH (06:38)
[2018-09-10 07:00] VITALS: BP 144/90
[2018-09-10] MEDS ORDERED: SILD25TA PO (10:51)
[2018-09-10] MEDS ORDERED: CLON0.5T PO (10:51)
[2018-09-10] MEDS ORDERED: SULF-143 PO (10:52)
[2018-09-10] MEDS ORDERED: SMZ/TMP 800/160MG TABLET. PO ONE (11:00)
[2018-09-10] MEDS: LACTOBACILLUS RHAMNOSUS GG 1 CAPSULE. PO SCH (11:01)
[2018-09-10] MEDS: clonazePAM 0.5 MG TABLET PO SCH (11:01)
--- NOTE | 2018-09-10 12:53 | NUR ---
Discharge Note: JUDSON PEREZ Discharge instructions and discharge home medications reviewed with Patient and a copy given. All questions have been answered and understanding verbalized. The following instructions and handouts were given: follow up information, medication education. Discontinued lines and drains: peripheral IV, tip intact. Patient discharged to home with self care via private vehicle. Patient left unit in stable condition and with all personal belongings.
--- NOTE | 2018-09-10 14:44 | PDOC3 ---
Discharge Summary Visit Information Date of Admission: September 08, 2018 Date of Discharge: September 10, 2018 Admitting Diagnosis: right hand cellulitis Final Diagnosis Problems Medical Problems: (1) Cellulitis of right hand Status: Acute (2) IV drug abuse Status: Acute (3) Sepsis markers resolved (4) Tobacco abuse, counseling done. Status: Acute Brief Hospital Course Allergies Allergies Coded Allergies Type Severity Reaction Last Updated Verified No Known Drug Allergies 09/07/18 No Vital Signs Vital Signs Date Time Temp Pulse Resp B/P (MAP) Pulse Ox O2 Delivery O2 Flow Rate FiO2 09/10/18 07:00 97.8 80 18 144/90 (108) 99 Room Air 97.8 Lab Results Laboratory Tests Test 09/09/18 06:40 09/09/18 23:30 09/10/18 04:10 White Blood Count 6.2 x10^3/uL (4.0-11.0) Red Blood Count 4.36 x10^6/uL (4.30-5.70) Hemoglobin 12.6 g/dL (13.0-17.5) Hematocrit 37.9 % (39.0-53.0) Mean Corpuscular Volume 87 fL (79-100) Mean Corpuscular Hemoglobin 29 pg (25-35) Mean Corpuscular Hemoglobin Concent 33 g/dL (31-37) Red Cell Distribution Width 12.9 % (11.5-14.5) Platelet Count 185 x10^3/uL (140-400) Neutrophils (%) (Auto) 68 % (31-73) Lymphocytes (%) (Auto) 17 % (24-48) Monocytes (%) (Auto) 10 % (0-9) Eosinophils (%) (Auto) 5 % (0-3) Basophils (%) (Auto) 1 % (0-3) Neutrophils # (Auto) 4.2 x10^3uL (1.8-7.7) Lymphocytes # (Auto) 1.0 x10^3/uL (1.0-4.8) Monocytes # (Auto) 0.6 x10^3/uL (0.0-1.1) Eosinophils # (Auto) 0.3 x10^3/uL (0.0-0.7) Basophils # (Auto) 0.0 x10^3/uL (0.0-0.2) Sodium Level 142 mmol/L (136-145) Potassium Level 3.9 mmol/L (3.5-5.1) Chloride Level 106 mmol/L (98-107) Carbon Dioxide Level 28 mmol/L (21-32) Anion Gap 8 (6-14) Blood Urea Nitrogen 10 mg/dL (8-26) Creatinine 0.9 mg/dL (0.7-1.3) 1.0 mg/dL (0.7-1.3) Estimated GFR (Cockcroft-Gault) 92.5 81.9 BUN/Creatinine Ratio 11 (6-20) Glucose Level 107 mg/dL (70-99) Calcium Level 8.2 mg/dL (8.5-10.1) Total Bilirubin 0.2 mg/dL (0.2-1.0) Aspartate Amino Transf (AST/SGOT) 26 U/L (15-37) Alanine Aminotransferase (ALT/SGPT) 48 U/L (16-63) Alkaline Phosphatase 88 U/L (46-116) Total Protein 5.9 g/dL (6.4-8.2) Albumin 2.6 g/dL (3.4-5.0) Albumin/Globulin Ratio 0.8 (1.0-1.7) Vancomycin Level Trough 15.9 mcg/mL (10.0-20.0) Vancomycin Last Dose Date 09/08/18 Vancomycin Last Dose Time 2300 Hepatitis A IgM Antibody Nonreactive (Nonreactive) Hepatitis B Surface Antigen Nonreactive (Nonreactive) Hepatitis B Core IgM Antibody Nonreactive (Nonreactive) Hepatitis C IgG Antibody Nonreactive (Nonreactive) HIV (1&2) Antibody Screen Nonreactive (Nonreactive) Urine Collection Type Unknown Urine Color Yellow Urine Clarity Cloudy Urine pH 6.5 Urine Specific [place] 1.010 Urine Protein Negative mg/dL (NEG-TRACE) Urine Glucose (UA) Negative mg/dL (NEG) Urine Ketones (Stick) Negative mg/dL (NEG) Urine Blood Negative (NEG) Urine Nitrite Negative (NEG) Urine Bilirubin Negative (NEG) Urine Urobilinogen Dipstick 0.2 mg/dL (0.2 mg/dL) Urine Leukocyte Esterase Negative (NEG) Urine RBC 0 /HPF (0-2) Urine WBC Occ /HPF (0-4) Urine Squamous Epithelial Cells Occ /LPF Urine Bacteria 0 /HPF (0-FEW) Urine Mucus Slight /LPF Urine Opiates Screen Neg (NEG) Urine Methadone Screen Neg (NEG) Urine Barbiturates Neg (NEG) Urine Phencyclidine Screen Neg (NEG) Urine Amphetamine/Methamphetamine Pos (NEG) Urine Benzodiazepines Screen Neg (NEG) Urine Cocaine Screen Neg (NEG) Urine Cannabinoids Screen Neg (NEG) Urine Ethyl Alcohol Neg (NEG) Laboratory Tests Test 09/09/18 23:30 09/10/18 04:10 Urine Collection Type Unknown Urine Color Yellow Urine Clarity Cloudy Urine pH 6.5 Urine Specific [place] 1.010 Urine Protein Negative mg/dL (NEG-TRACE) Urine Glucose (UA) Negative mg/dL (NEG) Urine Ketones (Stick) Negative mg/dL (NEG) Urine Blood Negative (NEG) Urine Nitrite Negative (NEG) Urine Bilirubin Negative (NEG) Urine Urobilinogen Dipstick 0.2 mg/dL (0.2 mg/dL) Urine Leukocyte Esterase Negative (NEG) Urine RBC 0 /HPF (0-2) Urine WBC Occ /HPF (0-4) Urine Squamous Epithelial Cells Occ /LPF Urine Bacteria 0 /HPF (0-FEW) Urine Mucus Slight /LPF Urine Opiates Screen Neg (NEG) Urine Methadone Screen Neg (NEG) Urine Barbiturates Neg (NEG) Urine Phencyclidine Screen Neg (NEG) Urine Amphetamine/Methamphetamine Pos (NEG) Urine Benzodiazepines Screen Neg (NEG) Urine Cocaine Screen Neg (NEG) Urine Cannabinoids Screen Neg (NEG) Urine Ethyl Alcohol Neg (NEG) Creatinine 1.0 mg/dL (0.7-1.3) Estimated GFR (Cockcroft-Gault) 81.9 Brief Hospital Course 43-year-old male presents with swelling and redness to right hand 3 days. Patient is right-handed. Patient reports he injected methamphetamines into the dorsal aspect of his upper wrist on Friday. Patient see was using a clean insulin needle. Reports he knows he missed the vein as he did not get his normal high. Patient reports the next day noted some significant swelling and redness which worsened over the last few days. Patient reports subjective fever and chills. Patient reports he found some left over Keflex antibiotics which he started yesterday. Patient reports today some slight improvement. Patient did have a ring on his right ring finger which was causing more pain and discomfort. Patient reports he has received a tetanus booster within the last 5 years. Patient started on vancomycin IV with great improvement of symptoms. I the patient was able to have range of motion towards the end of his hospital stay which was the main reason he decided to consult on September 08, 2018. Due to the D of the edema the patient was unable to mobilize his upper extremity. Signs and symptoms of alarm were discussed with the patient prior to discharge, extensive counseling was given to the patient regarding the noxious effects of IV drug abuse tobacco on his health. Encouraged to abstain from this practices. The patient has requested Klonopin for his anxiety and also Viagra for erectile dysfunction as part of medications upon discharge. Patient was given a prescription for Septra double strength days and he got his first dose here in the hospital prior to dismissal. All his concerns were addressed to the best of my abilities and signs and symptoms of alarm discussed with him prior to discharge my he acknowledged understanding of the instructions Lungs clear to auscultation with good respiratory effort CVS: S1-S2 regular rhythm no murmurs calls or rubs Discharge Information Condition at Discharge: Improved Follow Up: Weeks Disposition/Orders: D/C to Home Scheduled Sulfamethoxazole/Trimethoprim (Sulfamethoxazole-Tmp Ds Tablet) 1 Each Tablet, 1 TAB PO BID for cellulitis for 7 Days, #14 Prescribed by: PADMINI HUNTLEY MD on 09/10/18 1052 Scheduled PRN Clonazepam (Klonopin) 0.5 Mg Tablet, 0.5 MG PO TID PRN for AGITATION for 10 Days, #30 Prescribed by: PADMINI HUNTLEY MD on 09/10/18 1051 Sildenafil Citrate (Viagra) 25 Mg Tablet, 25 MG PO ONCE PRN for erectile dysfunction for 30 Days, #30 Prescribed by: PADMINI HUNTLEY MD on 09/10/18 1051 PADMINI HUNTLEY MD September 10, 2018 14:44
== END 2018-09-10 12:57 | disposition home or self-care (01) | DRG 872 ==
LOC: ER 19:29 → 5 NORTH 19:57
PROVIDERS: ADMIT Internal Medicine; ATTEND Internal Medicine
DX: A41.9 Sepsis, unspecified organism (principal); L03.113 Cellulitis of right upper limb; F15.90 Other stimulant use, unspecified, uncomplicated; F17.210 Nicotine dependence, cigarettes, uncomplicated; F19.10 Other psychoactive substance abuse, uncomplicated; F41.9 Anxiety disorder, unspecified; I10 Essential (primary) hypertension; N52.9 Male erectile dysfunction, unspecified; Z79.899 Other long term (current) drug therapy
CPT/HCPCS: 36415; 73130; 80053; 80202; 80307; 81001; 82565; 83605; 83735; 85025; 85610; 85651; 85730; 86140; 86703; 86705; 86709; 86803; 87040; 87340; 93306; 96365; J3370; J3490; J7030; J7040; 99285-25